=== PATIENT | male | born 1935 | race Caucasian/White ===

== ENCOUNTER 2018-01-27 10:18 | Outpatient (CLI) | payer OTHER ==
--- NOTE | 2018-01-27 13:11 | RAD ---
ONE VIEW CHEST THREE VIEWS LEFT RIBS: History: Contusions. Left chest wall pain. FINDINGS: There are pleural parenchymal changes of the left hemithorax. Obscuration of left heart border. Heart is enlarged. Right costophrenic angle is blunted. No pneumothorax. There is indeterminate fracture a long the lateral right third rib with a possible nondisplaced fracture involving the lateral right fo urth rib. RIB SERIES: There are acute fractures involving the left 4th and 5th rib. Remote fracture involving the 6th rib. No pneumothorax. IMPRESSION: 1. Pleural and parenchymal changes left hemithorax. CT may be beneficial for better interrogation. 2. Acute posterior left rib and possibly right rib fractures. POS: [facility]
== END 2018-01-27 10:19 | disposition home or self-care (01) ==
LOC: BURRAD 10:18
PROVIDERS: ATTEND Family Medicine
DX: S20.212A Contusion of left front wall of thorax, initial encounter (principal); S22.42XA Multiple fractures of ribs, left side, initial encounter for closed fracture